=== PATIENT | male | born 1990 | race Caucasian/White ===

== ENCOUNTER 2019-01-13 21:01 | Emergency (ER) | payer SELFPAY ==
[2019-01-13] MEDS ORDERED: KETOROLAC 30 MG/ML INJ ONE (21:38)
[2019-01-13] MEDS ORDERED: NA CHLORIDE 0.9% 1,000 ML ONE (21:39)
[2019-01-13 22:16] LABS: Absolute Lymphocytes (CBC) 2.9 K/uL (0.7-4.9); Basophils % 0.7 % (0-1.3); Hematocrit 48.3 % (39.6-49.0); Lymphocytes % 30.1 % (15.3-44.8); MPV 9.4 fL (7.6-11.3); RBC Red Blood Cell Count 5.01 M/uL (4.33-5.43)
[2019-01-13 22:23] LABS: Urine Blood NEGATIVE (NEG); Urine Glucose NEGATIVE (NEG); Urine Protein 2+ (NEG); Urine Specific Gravity >1.030 (1.005-1.030); Urine pH 5.5 (5.0-7.0)
[2019-01-13 22:53] LABS: Urine Amorphous Sediment 1+ /HPF (NONE SEEN); Urine Bacteria <20 /HPF (NONE SEEN); Urine Culture Reflex Order NOT NEEDED; Urine Mucus 2+ /HPF (NONE SEEN); Urine RBC NONE SEEN /HPF (NONE SEEN)
[2019-01-13 23:53] LABS: Potassium 3.7 mmol/L (3.5-5.1)
--- NOTE | 2019-01-14 00:33 | ER ---
Nurse's Notes [facility] Name: Rasta Jimenez Age: 28 yrs Sex: Male : 1990 Arrival Date: 01/13/2019 Time: 21:04 Bed 15 Private MD: Diagnosis: Low back pain Presentation: 01/13 21:15 Presenting complaint: Patient states: "I am having really bad back pain. Earlier I peed jd3 it was [place] in color.". Transition of care: patient was not received from another setting of care. Onset of symptoms was January 13, 2019. Risk Assessment: Do you want to hurt yourself or someone else? Patient reports no desire to harm self or others. Initial Sepsis Screen: Does the patient meet any 2 criteria? No. Patient's initial sepsis screen is negative. Does the patient have a suspected source of infection? No. Patient's initial sepsis screen is negative. Care prior to arrival: None. 21:15 Method Of Arrival: Ambulatory jd3 21:15 Acuity: OLVIN 3 jd3 Historical: - Allergies: 21:18 No Known Allergies; jd3 - Home Meds: 21:18 None [Active]; jd3 - PMHx: 21:18 heart valve infection; jd3 - PSHx: 21:18 None; jd3 - Immunization history:: Adult Immunizations up to date. - Social history:: Smoking status: Patient uses tobacco products, smokes one pack cigarettes per day. - Ebola Screening: : Patient negative for fever greater than or equal to 101.5 degrees Fahrenheit, and additional compatible Ebola Virus Disease symptoms. Screenin:40 Abuse screen: Denies threats or abuse. Nutritional screening: No deficits noted. ea Tuberculosis screening: No symptoms or risk factors identified. Fall Risk None identified. Assessment: 21:36 General: Appears in no apparent distress. Behavior is calm, cooperative, appropriate ea for age. Pain: Complains of pain in left flank. Neuro: Level of Consciousness is awake, alert, obeys commands, Oriented to person, place, time, situation. Cardiovascular: Patient's skin is warm and dry. Respiratory: Airway is patent Respiratory effort is even, unlabored, Respiratory pattern is regular, symmetrical. Derm: Skin is pink, warm \\T\\ dry. Musculoskeletal: Circulation, motion, and sensation intact. 22:30 Reassessment: Patient and/or family updated on plan of care and expected duration. Pain ea level reassessed. Patient is alert, oriented x 3, equal unlabored respirations, skin warm/dry/pink. 23:00 Reassessment: Patient and/or family updated on plan of care and expected duration. Pain ea level reassessed. Patient is alert, oriented x 3, equal unlabored respirations, skin warm/dry/pink. Awaiting on results. 01/14 00:23 Reassessment: Patient and/or family updated on plan of care and expected duration. Pain ea level reassessed. Pt resting with eyes closed, respirations even and unlabored, chest expansions even and symmetrical. 01:00 Reassessment: Patient and/or family updated on plan of care and expected duration. Pain ea level reassessed. Patient is alert, oriented x 3, equal unlabored respirations, skin warm/dry/pink. Discharge instruction given to patient, verbalized the understanding of instruction. No s/s of pain or discomfort noted at this time. Pt left ambulatory tolerating well. Vital Signs: 01/13 21:18 BP 139 / 90; Pulse 82; Resp 16 S; Temp 98.0(TE); Pulse Ox 98% on R/A; Weight 122.47 kg jd3 (R); Height 6 ft. 2 in. (187.96 cm) (R); Pain 6/10; 22:30 BP 107 / 56; Pulse 67; Resp 18; Pulse Ox 96% ; ea 23:00 BP 112 / 52; Pulse 64; Resp 18; Pulse Ox 97% on R/A; ea 01/14 00:50 BP 128 / 70; Pulse 70; Resp 18; Temp 97.6; Pulse Ox 98% on R/A; ea 01/13 21:18 Body Mass Index 34.67 (122.47 kg, 187.96 cm) jd3 ED Course: 01/13 21:04 Patient arrived in ED. ds1 21:16 Triage completed. jd3 21:18 Arm band placed on. jd3 21:24 Zhen Montez MD is Attending Physician. gs 21:36 Nemo Espana, JENY is Primary Nurse. ea 21:[address] via wheelchair. vm2 21:40 Patient has correct armband on for positive identification. Bed in low position. Call ea light in reach. Side rails up X2. 21:44 Inserted saline lock: 20 gauge in right antecubital area, using aseptic technique. ea 21:47 CT completed. Patient tolerated procedure well. Patient moved back from CT. id 22:[id number] CT Stone Protocol In Process Unspecified. EDMI 01/14 00:55 IV discontinued, intact, bleeding controlled, No redness/swelling at site. Pressure ea dressing applied. 01:00 No provider procedures requiring assistance completed. ea Administered Medications: 01/13 22:00 Drug: TORadol - Ketorolac 15 mg Route: IVP; Site: right antecubital; ea 22:30 Follow up: Response: No adverse reaction; Pain is decreased ea 22:00 Drug: NS 0.9% 1000 ml Route: IV; Rate: 1 bolus; Site: right antecubital; ea 01/14 00:10 Follow up: Response: No adverse reaction; IV Status: Completed infusion; IV Intake: ea 1000ml Intake: 00:10 IV: 1000ml; Total: 1000ml. ea Outcome: 00:30 Discharge ordered by . sloan 01:02 Discharged to home ambulatory. ea 01:02 Condition: stable 01:02 Discharge instructions given to patient, Instructed on discharge instructions, follow up and referral plans. medication usage, Demonstrated understanding of instructions, follow-up care, medications, Prescriptions given X 1. 01:03 Patient left the ED. ea Signatures: Dispatcher [employer] EDMI Tianna Young dsFrankie Saucedo Victoria 2 Nemo Espana RN RN Zhen Austin MD MD gs Davies, Jonathon, RN RN jd3
--- NOTE | 2019-01-14 00:34 | EDPHYS ---
Physician Documentation [facility] Name: Rasta Jimenez Age: 28 yrs Sex: Male : 1990 Arrival Date: 01/13/2019 Time: 21:04 Bed 15 Private MD: ED Physician Zhen Montez HPI: 01/14 00:08 This 28 yrs old Male presents to ER via Ambulatory with complaints of Back gs Pain - L Side. 00:08 The patient presents with pain that is acute. The symptoms are located in the low back. gs Onset: The symptoms/episode began/occurred today. The pain radiates to the left lower quadrant. Associated signs and symptoms: Pertinent positives: hematuria. Severity of symptoms: At their worst the symptoms were moderate, in the emergency department the symptoms are unchanged. The patient has experienced similar episodes in the past, a few times. Historical: - Allergies: 01/13 21:18 No Known Allergies; jd3 - Home Meds: 21:18 None [Active]; jd3 - PMHx: 21:18 heart valve infection; jd3 - PSHx: 21:18 None; jd3 - Immunization history:: Adult Immunizations up to date. - Social history:: Smoking status: Patient uses tobacco products, smokes one pack cigarettes per day. - Ebola Screening: : Patient negative for fever greater than or equal to 101.5 degrees Fahrenheit, and additional compatible Ebola Virus Disease symptoms. ROS: 01/14 00:08 All other systems are negative. gs Exam: 00:08 Head/Face: Normocephalic, atraumatic. Eyes: Pupils equal round and reactive to light, gs extra-ocular motions intact. Lids and lashes normal. Conjunctiva and sclera are non-icteric and not injected. Cornea within normal limits. Periorbital areas with no swelling, redness, or edema. ENT: Nares patent. No nasal discharge, no septal abnormalities noted. Tympanic membranes are normal and external auditory canals are clear. Oropharynx with no redness, swelling, or masses, exudates, or evidence of obstruction, uvula midline. Mucous membranes moist. Neck: Trachea midline, no thyromegaly or masses palpated, and no cervical lymphadenopathy. Supple, full range of motion without nuchal rigidity, or vertebral point tenderness. No Meningismus. Chest/axilla: Normal chest wall appearance and motion. Nontender with no deformity. No lesions are appreciated. Cardiovascular: Regular rate and rhythm with a normal S1 and S2. No gallops, murmurs, or rubs. Normal PMI, no JVD. No pulse deficits. Respiratory: Lungs have equal breath sounds bilaterally, clear to auscultation and percussion. No rales, rhonchi or wheezes noted. No increased work of breathing, no retractions or nasal flaring. Abdomen/GI: Soft, non-tender, with normal bowel sounds. No distension or tympany. No guarding or rebound. No evidence of tenderness throughout. Skin: Warm, dry with normal turgor. Normal color with no rashes, no lesions, and no evidence of cellulitis. MS/ Extremity: Pulses equal, no cyanosis. Neurovascular intact. Full, normal range of motion. Neuro: Awake and alert, GCS 15, oriented to person, place, time, and situation. Cranial nerves II-XII grossly intact. Motor strength 5/5 in all extremities. Sensory grossly intact. Cerebellar exam normal. Normal gait. 00:08 Constitutional: The patient appears alert, awake. 00:08 Back: CVA tenderness, that is mild, is noted on the left. Vital Signs: 01/13 21:18 BP 139 / 90; Pulse 82; Resp 16 S; Temp 98.0(TE); Pulse Ox 98% on R/A; Weight 122.47 kg jd3 (R); Height 6 ft. 2 in. (187.96 cm) (R); Pain 6/10; 22:30 BP 107 / 56; Pulse 67; Resp 18; Pulse Ox 96% ; ea 23:00 BP 112 / 52; Pulse 64; Resp 18; Pulse Ox 97% on R/A; ea 01/14 00:50 BP 128 / 70; Pulse 70; Resp 18; Temp 97.6; Pulse Ox 98% on R/A; ea 01/13 21:18 Body Mass Index 34.67 (122.47 kg, 187.96 cm) jd3 MDM: 01/13 21:34 Patient medically screened. 01/14 00:08 Differential diagnosis: Pyelonephritis sprain, Ureterolithiasis. Data reviewed: vital gs signs, nurses notes. Counseling: I had a detailed discussion with the patient and/or guardian regarding: the historical points, exam findings, and any diagnostic results supporting the discharge/admit diagnosis, the need for outpatient follow up. Response to treatment: the patient's symptoms have markedly improved after treatment, and as a result, I will discharge patient. 01/13 21:36 Order name: Urine Microscopic Only gs 01/13 21:36 Order name: CBC with Diff 01/13 21:36 Order name: Basic Metabolic Panel; Complete Time: 00:08 01/13 21:36 Order name: Urine Microscopic Only; Complete Time: 23:17 EDMS 01/13 21:36 Order name: CBC with Automated Diff; Complete Time: 23:17 EDWA 01/13 22:09 Order name: Urine Dipstick--Ancillary (enter results) ag4 01/13 21:36 Order name: Urine Dipstick-Ancillary (obtain specimen); Complete Time: 22:14 01/13 21:36 Order name: CT Stone Protocol gs Administered Medications: 01/13 22:00 Drug: TORadol - Ketorolac 15 mg Route: IVP; Site: right antecubital; ea 22:30 Follow up: Response: No adverse reaction; Pain is decreased ea 22:00 Drug: NS 0.9% 1000 ml Route: IV; Rate: 1 bolus; Site: right antecubital; ea 01/14 00:10 Follow up: Response: No adverse reaction; IV Status: Completed infusion; IV Intake: ea 1000ml Disposition: 01/14/19 00:30 Discharged to Home. Impression: Low back pain. - Condition is Stable. - Discharge Instructions: Back Pain, Adult. - Prescriptions for Naprosyn 500 mg Oral Tablet - take 1 tablet by ORAL route 2 times per day take with food; 20 tablet. - Work release form, Medication Reconciliation Form, Thank You Letter, Antibiotic Education, Prescription Opioid Use form. - Follow up: Private Physician; When: 2 - 3 days; Reason: Re-evaluation by your physician. Signatures: [facility] Nemo Jennings RN RN ea Starr, Gregory, MD MD gs Davies, Jonathon, RN RN jd3 Corrections: (The following items were deleted from the chart) 01:03 00:30 01/14/2019 00:30 Discharged to Home. Impression: Low back pain. Condition is ea Stable. Forms are Medication Reconciliation Form, Thank You Letter, Antibiotic Education, Prescription Opioid Use. Follow up: Private Physician; When: 2 - 3 days; Reason: Re-evaluation by your physician. gs
--- NOTE | 2019-01-14 10:01 | RAD REPORT ---
EXAM DESCRIPTION: Stone Protocol TECHNIQUE: Axial scans through the abdomen and pelvis without intravenous contrast including multipl genevieve computer reformations. Total Dose Length Product: 1673. This exam was performed according to our departmental dose-optimization program, which includes autom ated exposure control, adjustment of the mA and/or kV according to patient size and/or use of iterati ve reconstruction technique. Comparison studies: None. CLINICAL HISTORY: PAIN. FINDINGS: Liver: Size: 24 cm. Parenchyma: Fatty infiltration. Vasculature: Portal and hepatic veins: Indeterminate, noncontrast. Spleen: Enlarged, 16.5 cm. Gallbladder: Contracted. Bile ducts: No biliary dilatation. Pancreas: normal. Adrenal glands: Normal. Kidneys: No evidence for kidney stone, kidney obstruction or perinephric fluid. Bladder: Underdistended. Prostate: Normal. Intestinal Tract: Stomach and duodenum: Unremarkable Small bowel: Normal. Large bowel: Normal. Appendix: Normal. Mesentery and Omentum: Normal. Retroperitoneum: Normal. Vasculature: Aorta: Normal. Iliac arteries: Normal. Free fluid: None. Musculoskeletal: Musculature, abdominal wall and soft tissues: Small bilateral inguinal nodes. Skeletal structures: Mild spondylosis. Lung bases: Clear. IMPRESSION: 1. No acute CT findings. No evidence for kidney stone or ureteral obstruction. 2. Fatty liver. Hepatosplenomegaly. Electronically signed by: Rigo Palacio MD 01/13/2019 10:31 PM CDT Due to temporary technical issues with the PACS/Fluency reporting system, reports are being signed by the in house radiologist as a courtesy to ensure prompt reporting. The interpreting radiologist is f ully responsible for the content of the report.
== END 2019-01-14 01:03 | disposition home or self-care (01) ==
LOC: ER 21:01
DX: M54.5 Low back pain (principal); F17.210 Nicotine dependence, cigarettes, uncomplicated
CPT/HCPCS: 36415; 74176; 76377; 80048; 81003; 81015; 85025; 96361; 96374; 99284; J7030